=== PATIENT | female | born 1940 | race Hispanic/Latino ===

== ENCOUNTER 2017-12-17 07:17 | Outpatient (CLI) | payer MEDICARE, OTHER ==
[2017-12-17] MEDS ORDERED: Iopamidol 370 76% 100 ML VIAL ONE (11:08)
--- NOTE | 2017-12-17 12:21 | CT ---
CT ANGIOGRAM OF THE NECK: HISTORY: Evaluate for carotid stenosis. Right-sided neck mass. Restless leg syndrome. COMPARISON: None. TECHNIQUE: A CT angiogram of the neck is performed in the axial plane. Sagittal and coronal three-dimensional r eformatted images are submitted for interpretation. FINDINGS: Bilateral ocular lens implants are noted. Both globes are intact. Retrobulbar fat is preserved. Sy mmetric attenuation of the optic nerves and ocular rectus muscles. Visualized brain parenchyma is unremarkable. Adequate aeration of the sinuses and mastoid air cells. The aerodigestive tract is patent. No mucosal abnormality. Limited evaluation of the oral cavity du e to dental amalgam artifact. Midline fatty raphe of the tongue is preserved. The epiglottis has a normal caliber. Pre-epiglottic fat is preserved. Mass effect upon the posterior oropharynx and hypo pharynx due to medial deviation of both internal carotid and right common carotid arteries. Symmetric attenuation of the parotid and submandibular glands. Symmetric attenuation of the sternocleidomastoid muscles. No evidence of lymphadenopathy by size cri teria. Cervical spine vertebral body height is maintained. No fracture. Varying degrees of central canal s tenosis or foraminal narrowing. The upper mediastinum and lung apices are unremarkable. CT ANGIOGRAM: There is appropriate enhancement and luminal diameter of the aortic arch. RIGHT CAROTID: The origin of the right carotid artery is appropriate in enhancement and luminal diam eter. The right common carotid artery, carotid bifurcation, and internal carotid artery have overall appropriate enhancement and luminal diameter. There is tortuosity of the mid right internal carotid artery. LEFT CAROTID: The left common carotid artery has appropriate enhancement and luminal diameter. Ther e is short-segment mild stenosis involving the left carotid bifurcation, based upon NASCET criteria. The proximal, mid, and distal left internal carotid artery have overall appropriate enhancement and luminal diameter. There is tortuosity with medial deviation of the mid left internal carotid artery. The left and right vertebral body origins have appropriate enhancement and luminal diameter. There i s symmetric enhancement and luminal diameter of the vertebral arteries. IMPRESSION: 1. No evidence of significant stenosis based upon NASCET criteria. 2. Mild stenosis involving the left carotid bifurcation. 3. Medial deviation and tortuosity of both internal carotid arteries, as well as the right common ca rotid artery. POS: [facility]
== END 2017-12-17 07:18 | disposition home or self-care (01) ==
LOC: CT 07:17
PROVIDERS: ATTEND Internal Medicine
DX: R22.1 Localized swelling, mass and lump, neck (principal); I65.22 Occlusion and stenosis of left carotid artery; I77.89 Other specified disorders of arteries and arterioles
CPT/HCPCS: 70498

== ENCOUNTER 2019-01-09 15:38 | Outpatient (CLI) | payer MEDICARE, OTHER ==
--- NOTE | 2019-01-09 16:33 | RAD ---
TWO VIEWS RIGHT HIP 01/09/19 HISTORY: Right hip pain. AP and frogleg views right hip is obtained on 01/09/19. Two views right hip demonstrate no evidence of right hip fractures, subluxations, or bony lesions. IMPRESSION: Normal two views right hip. POS: [facility]
== END 2019-01-09 15:39 | disposition home or self-care (01) ==
LOC: BICRAD 15:38
PROVIDERS: ATTEND Internal Medicine
DX: M25.551 Pain in right hip (principal)
CPT/HCPCS: 36415; 80053; 80061; 84443; 85025

== ENCOUNTER 2019-01-20 13:23 | Outpatient (CLI) | payer MEDICARE, OTHER ==
--- NOTE | 2019-01-20 16:21 | BD ---
BONE DENSITOMETRY USING DEXA: Date: 01/20/19 HISTORY: Postmenopausal screening for osteoporosis. FINDINGS: Lumbar Spine: BMD (g/cm2) L1 1.057 T-Score: 0.6 Z-Score: 2.9 L2 1.009 T-Score: -0.2 Z-Score: 2.4 L3 1.106 T-Score: 0.2 Z-Score: 2.9 L4 1.133 T-Score: 0.7 Z-Score: 3.5 L1-L4 1.077 T-Score: 0.3 Z-Score: 2.9 Femoral Neck: 0.686 T-Score: -1.5 Z-Score: 0.7 Total Femur: 0.816 T-Score: -1.0 Z-Score: 0.9 The 10 year fracture risk for a major osteoporotic fracture is 22% and for a hip fracture is 12%. IMPRESSION: Osteopenia. POS: [facility]
--- NOTE | 2019-01-27 13:20 | MMO ---
Bilateral MAMMO Bilat Screen [facility]. CLINICAL HISTORY: Patient is 78 years old and is seen for screening. The patient has no family history of breast cancer. The patient has a history of uterine cancer at age 31 and melanoma. VIEWS: The views performed were: bilateral craniocaudal with tomosynthesis and bilateral mediolateral oblique with tomosynthesis. FILMS COMPARED: The present examination has been compared to prior imaging studies performed at [facility] on 01/12/2016, and at [facility] on 10/22/2007 and 03/07/2010. MAMMOGRAM FINDINGS: There are benign appearing calcifications. There are no suspicious masses, calcifications or areas of architectural distortion. IMPRESSION: THERE IS NO MAMMOGRAPHIC EVIDENCE OF MALIGNANCY. A ROUTINE FOLLOW-UP MAMMOGRAM IN 1 YEAR IS RECOMMENDED. THE RESULTS OF THIS EXAM WERE SENT TO THE PATIENT. ACR BI-RADS Category 2 - Benign finding MAMMOGRAPHY NOTE: 1. A negative mammogram report should not delay a biopsy if a dominant of clinically suspicious mass is present. 2. Approximately 10% to 15% of breast cancers are not detected by mammography. 3. Adenosis and dense breasts may obscure an underlying neoplasm.
== END 2019-01-20 13:24 | disposition home or self-care (01) ==
LOC: BICMAMMO 13:23
PROVIDERS: ATTEND Internal Medicine
DX: Z12.31 Encounter for screening mammogram for malignant neoplasm of breast (principal); Z78.0 Asymptomatic menopausal state; M85.859 Other specified disorders of bone density and structure, unspecified thigh; Z85.42 Personal history of malignant neoplasm of other parts of uterus; Z85.820 Personal history of malignant melanoma of skin
CPT/HCPCS: 77063; 77067; 77080

== ENCOUNTER 2019-11-14 13:48 | Emergency (ER) | payer MEDICARE, OTHER ==
[2019-11-14] MEDS ORDERED: Atropine Sulfate 1 mg/10 ml Syringe ONE (14:11)
[2019-11-14 14:23] LABS: Mean Corpuscular HGB CONC 33.7 g/dL (32.0-36.0); Mean Corpuscular Hemoglobin 30.7 pg (27.0-31.0); Mean Corpuscular Volume 91.2 fL (78.0-98.0); Mean Platelet Volume 7.4 fL (7.4-10.4); Platelet Count 151 thou/uL (130-400); RBC Distribution Width 11.9 % (11.5-14.5); Red Blood Cell (RBC) Count 4.23 mill/uL (4.20-5.40)
[2019-11-14 14:42] LABS: ALT (SGPT) 11 U/L (8-55); AST (SGOT) 19 U/L (5-34); Albumin 3.5 g/dL (3.4-4.8); Alkaline Phosphatase 68 U/L (40-110); Anion Gap 13 mmol/L (10-20); BUN (Urea Nitrogen) 11 mg/dL (9.8-20.1); Bilirubin, Total 0.4 mg/dL (0.2-1.2); CK (CPK) 138 U/L (29-168); Calc. Creatinine Clearance 0 mL/min (70-130); Calcium 7.9 mg/dL (7.8-10.44); Carbon Dioxide 21 mmol/L (23-31); Chloride 101 mmol/L (98-107); Estimated GFR-MDRD 73; Globulin 2.4 g/dL (2.4-3.5); Glucose 92 mg/dL (83-110); Potassium 3.7 mmol/L (3.5-5.1); Protein, Total 5.9 g/dL (6.0-8.3); Sodium 131 mmol/L (136-145)
--- NOTE | 2019-11-14 14:43 | CT ---
CT BRAIN WITHOUT CONTRAST: HISTORY: Syncope. COMPARISON: 06/02/2015 FINDINGS: Changes of chronic small vessel ischemic disease and mild cortical atrophy are again seen. The ventri cular size is stable and the basilar cisterns are patent. No evidence of acute infarct, hemorrhage, midline shift or abnormal extraaxial fluid collections is s een. The bony calvarium is intact. the visualized paranasal sinuses and mastoid air cells are well ae rated. IMPRESSION: No CT evidence of acute intracranial process. POS: [facility]
[2019-11-14 15:03] LABS: Band 1 % (5-11); Eosinophils 5 % (0-10); Lymphocytes 27 % (21-51); MDiff Complete? YES; Monocytes 18 % (0-10); Neutrophil 49 % (42-75); Platelet Morphology Comment Appears Adequate; RBC Morphology Normal
[2019-11-14 17:37] LABS: Bacteria/HPF None Seen HPF (None Seen); Bilirubin Negative (Negative); Blood, Urine Negative (Negative); Clarity Clear (Clear); Glucose, Urine (Dipstick) Normal (Negative); Leukocyte 75 Leu/uL (Negative); Nitrite Negative (Negative); Protein, Urine (Dipstick) Negative (Neg-Trace); RBC/HPF 0-3 HPF (0-3); Squamous Epithelial 0-3 HPF (0-3); Urobilinogen Normal mg/dL (Less than 2)
== END 2019-11-14 17:11 | disposition home or self-care (01) ==
LOC: ERS 13:48
DX: R55 Syncope and collapse (principal); I10 Essential (primary) hypertension; G25.81 Restless legs syndrome; Z85.79 Personal history of other malignant neoplasms of lymphoid, hematopoietic and related tissues; Z79.899 Other long term (current) drug therapy
CPT/HCPCS: 36415; 70450; 80053; 81003; 81015; 82550; 83880; 84484; 85025; 93005; 96361; 96374; J0461

== ENCOUNTER 2020-05-28 12:47 | Emergency (ER) | payer MEDICARE, OTHER ==
[2020-05-28 13:26] LABS: #Basophils 0.1 thou/uL (0.0-0.2); #Eosinphils 0.1 thou/uL (0.0-0.7); #Lymphocytes 1.4 thou/uL (1.20-3.40); #Monocytes 0.7 thou/uL (0.11-0.59); #Neutrophils 5.6 thou/uL (1.40-6.50); %Basophils 0.7 % (0.0-1.0); %Eosinophils 1.6 % (0.0-10.0); %Lymphocytes 17.5 % (21.0-51.0); %Monocytes 8.9 % (0.0-10.0); %Neutrophils 71.4 % (42.0-75.0); Hemoglobin 13.5 g/dL (12.0-16.0); Mean Corpuscular HGB CONC 32.8 g/dL (32.0-36.0); Mean Corpuscular Hemoglobin 30.2 pg (27.0-31.0); Mean Corpuscular Volume 91.9 fL (78.0-98.0); Mean Platelet Volume 7.6 fL (7.4-10.4); Platelet Count 184 thou/uL (130-400); RBC Distribution Width 12.3 % (11.5-14.5); Red Blood Cell (RBC) Count 4.47 mill/uL (4.20-5.40); White Blood Cell (WBC) Count 7.9 thou/uL (4.8-10.8)
[2020-05-28 13:51] LABS: ALT (SGPT) 13 U/L (8-55); AST (SGOT) 17 U/L (5-34); Alkaline Phosphatase 77 U/L (40-110); Anion Gap 11 mmol/L (10-20); BUN (Urea Nitrogen) 15 mg/dL (9.8-20.1); Bilirubin, Total 0.4 mg/dL (0.2-1.2); Calc. Creatinine Clearance 0 mL/min (70-130); Calcium 9.2 mg/dL (7.8-10.44); Carbon Dioxide 24 mmol/L (23-31); Chloride 98 mmol/L (98-107); Estimated GFR-MDRD 69; Globulin 3.2 g/dL (2.4-3.5); Glucose 89 mg/dL (83-110); Potassium 4.4 mmol/L (3.5-5.1); Protein, Total 7.2 g/dL (6.0-8.3); Sodium 129 mmol/L (136-145)
== END 2020-05-28 14:38 | disposition home or self-care (01) ==
LOC: ERS 12:47
DX: N39.0 Urinary tract infection, site not specified (principal); I10 Essential (primary) hypertension; Z79.899 Other long term (current) drug therapy; Z85.79 Personal history of other malignant neoplasms of lymphoid, hematopoietic and related tissues
CPT/HCPCS: 36415; 80053; 85025; 99283

== ENCOUNTER 2020-06-09 10:17 | Outpatient (CLI) | payer MEDICARE, OTHER ==
--- NOTE | 2020-06-09 10:43 | RAD ---
EXAM: 2 views of the lumbosacral spine HISTORY: Low back pain COMPARISON: 02/17/2008 FINDINGS: 2 views of the lumbosacral spine shows moderate to severe scoliotic curvature the spine wit h intervertebral disc space narrowing and osteophyte formation. The vertebral bodies demonstrate normal height without fracture. Posterior facet arthrosis is seen throughout the lumbar spine. Cholecystectomy clips are seen. The sacroiliac joints are unremarkable. IMPRESSION: Severe degenerative changes and scoliosis of the lumbar spine without acute osseous abnor mality.
== END 2020-06-09 10:18 | disposition home or self-care (01) ==
LOC: BICRAD 10:17
PROVIDERS: ATTEND Physician Assistant
DX: M54.31 Sciatica, right side (principal); M47.816 Spondylosis without myelopathy or radiculopathy, lumbar region; M41.9 Scoliosis, unspecified
CPT/HCPCS: 72100

== ENCOUNTER 2021-07-17 15:18 | Inpatient (IN) | payer MEDICARE, OTHER ==
[2021-07-17 15:55] LABS: #Basophils 0.1 thou/uL (0.0-0.2); #Eosinphils 0.2 thou/uL (0.0-0.7); #Lymphocytes 1.5 thou/uL (1.20-3.40); #Monocytes 0.8 thou/uL (0.11-0.59); #Neutrophils 4.5 thou/uL (1.40-6.50); %Basophils 0.8 % (0.0-1.0); %Lymphocytes 20.6 % (21.0-51.0); %Monocytes 11.2 % (0.0-10.0); %Neutrophils 64.4 % (42.0-75.0); Hemoglobin 13.4 g/dL (12.0-16.0); Mean Corpuscular HGB CONC 33.9 g/dL (32.0-36.0); Mean Corpuscular Hemoglobin 31.1 pg (27.0-31.0); Mean Corpuscular Volume 91.8 fL (78.0-98.0); Mean Platelet Volume 7.1 fL (7.4-10.4); Platelet Count 161 thou/uL (130-400); RBC Distribution Width 12.1 % (11.5-14.5); White Blood Cell (WBC) Count 7.1 thou/uL (4.8-10.8)
[2021-07-17 16:17] LABS: ALT (SGPT) 13 U/L (8-55); AST (SGOT) 21 U/L (5-34); Albumin 3.4 g/dL (3.4-4.8); Alkaline Phosphatase 97 U/L (40-110); Anion Gap 13 mmol/L (10-20); BUN (Urea Nitrogen) 10 mg/dL (9.8-20.1); Bilirubin, Total 0.3 mg/dL (0.2-1.2); Calc. Creatinine Clearance 0 mL/min (70-130); Calcium 8.7 mg/dL (7.8-10.44); Carbon Dioxide 23 mmol/L (23-31); Chloride 101 mmol/L (98-107); Globulin 2.7 g/dL (2.4-3.5); Glucose 105 mg/dL (83-110); Lipase 32 U/L (8-78); Potassium 3.7 mmol/L (3.5-5.1); Protein, Total 6.1 g/dL (5.8-8.1); Sodium 133 mmol/L (136-145)
[2021-07-17] MEDS ORDERED: Calcium Carbonate 500 MG ChewTAB PO PRN (18:02)
[2021-07-17 18:04] LABS: Magnesium 2.1 mg/dL (1.6-2.6)
[2021-07-17] MEDS ORDERED: rOPINIRole HCl 0.25 MG TAB PO PRN (18:08)
[2021-07-17 18:35] LABS: Troponin I Less than 0.010 ng/mL (< 0.028)
[2021-07-17 19:24] LABS: #Lymphocytes 0.7 thou/uL (1.20-3.40); #Monocytes 0.5 thou/uL (0.11-0.59); #Neutrophils 9.9 thou/uL (1.40-6.50); %Basophils 0.3 % (0.0-1.0); %Eosinophils 0.4 % (0.0-10.0); %Lymphocytes 6.2 % (21.0-51.0); %Monocytes 4.5 % (0.0-10.0); %Neutrophils 88.6 % (42.0-75.0); Hemoglobin 14.8 g/dL (12.0-16.0); Mean Corpuscular HGB CONC 34.8 g/dL (32.0-36.0); Mean Corpuscular Hemoglobin 32.6 pg (27.0-31.0); Mean Corpuscular Volume 93.6 fL (78.0-98.0); Mean Platelet Volume 7.5 fL (7.4-10.4); Platelet Count 156 thou/uL (130-400); RBC Distribution Width 12.2 % (11.5-14.5); Red Blood Cell (RBC) Count 4.54 mill/uL (4.20-5.40); White Blood Cell (WBC) Count 11.2 thou/uL (4.8-10.8)
[2021-07-17 20:05] VITALS: BMI 27.7
[2021-07-17] MEDS: Pantoprazole 40 MG VIAL IVP SCH (20:36)
[2021-07-17] MEDS: Saccharomyces boulardii 250 MG CAP PO SCH (20:36)
[2021-07-17] MEDS: NS 0.9% w/ 20 MEQ KCL 1,000 ML/1,000 ML BAG IV SCH (22:16)
[2021-07-17 23:37] LABS: Troponin I Less than 0.010 ng/mL (< 0.028)
[2021-07-18] MEDS: Lidocaine 2% Viscous Solution 20 ML, Aluminum & Magnesium Hydroxide 30 ML, Donnatal Eli... SSW SCH ×2 (00:13→00:59)
[2021-07-18] MEDS ORDERED: Lidocaine 2% Viscous Solution 10 ML, Aluminum & Magnesium Hydroxide 30 ML SSW SCH (01:00)
[2021-07-18 04:47] LABS: #Lymphocytes 0.7 thou/uL (1.20-3.40); #Monocytes 1.8 thou/uL (0.11-0.59); #Neutrophils 14.1 thou/uL (1.40-6.50); %Basophils 0.1 % (0.0-1.0); %Eosinophils 0.1 % (0.0-10.0); %Monocytes 10.6 % (0.0-10.0); %Neutrophils 85.3 % (42.0-75.0); Hemoglobin 14.2 g/dL (12.0-16.0); Mean Corpuscular HGB CONC 33.2 g/dL (32.0-36.0); Mean Corpuscular Hemoglobin 30.9 pg (27.0-31.0); Mean Corpuscular Volume 93.1 fL (78.0-98.0); Mean Platelet Volume 7.4 fL (7.4-10.4); Platelet Count 146 thou/uL (130-400); RBC Distribution Width 12.4 % (11.5-14.5); White Blood Cell (WBC) Count 16.5 thou/uL (4.8-10.8)
[2021-07-18] MEDS: Pantoprazole 40 MG VIAL IVP SCH (08:55)
[2021-07-18 10:41] LABS: Hemoglobin 14.2 g/dL (12.0-16.0)
[2021-07-18 11:07] LABS: ALT (SGPT) 12 U/L (8-55); AST (SGOT) 21 U/L (5-34); Albumin 3.3 g/dL (3.4-4.8); Alkaline Phosphatase 62 U/L (40-110); Anion Gap 13 mmol/L (10-20); BUN (Urea Nitrogen) 9 mg/dL (9.8-20.1); Calc. Creatinine Clearance 69 mL/min (70-130); Calcium 8.7 mg/dL (7.8-10.44); Carbon Dioxide 20 mmol/L (23-31); Chloride 105 mmol/L (98-107); Globulin 2.6 g/dL (2.4-3.5); Glucose 103 mg/dL (83-110); Potassium 4.4 mmol/L (3.5-5.1); Protein, Total 5.9 g/dL (5.8-8.1); Sodium 134 mmol/L (136-145)
[2021-07-18] MEDS: NS 0.9% w/ 20 MEQ KCL 1,000 ML/1,000 ML BAG IV SCH ×2 (11:49→20:48)
[2021-07-18] MEDS ORDERED: Iopamidol-370 76% 500 ML 1 ML ONE (12:22)
[2021-07-18 13:45] LABS: SARS-CoV-2 PCR by NAA Not Detected (NotDetected)
[2021-07-18] MEDS: Pramipexole Di-HCl 0.25 MG TAB PO SCH (14:37)
[2021-07-18] MEDS: metroNIDAZOLE 250 MG in Admixture Fee 2 EACH IVPB SCH (18:02)
[2021-07-18] MEDS: Saccharomyces boulardii 250 MG CAP PO SCH (20:48)
[2021-07-19] MEDS: metroNIDAZOLE 250 MG in Admixture Fee 2 EACH IVPB SCH ×4 (01:42→18:05)
[2021-07-19] MEDS: Acetaminophen 325 MG TAB PO PRN (01:56)
[2021-07-19 04:27] LABS: #Basophils 0.1 thou/uL (0.0-0.2); #Eosinphils 0.1 thou/uL (0.0-0.7); #Lymphocytes 1.8 thou/uL (1.20-3.40); #Monocytes 1.2 thou/uL (0.11-0.59); #Neutrophils 10.6 thou/uL (1.40-6.50); %Basophils 0.4 % (0.0-1.0); %Eosinophils 0.8 % (0.0-10.0); %Lymphocytes 13.3 % (21.0-51.0); %Monocytes 8.4 % (0.0-10.0); %Neutrophils 77.1 % (42.0-75.0); Hemoglobin 12.5 g/dL (12.0-16.0); Mean Corpuscular HGB CONC 33.3 g/dL (32.0-36.0); Mean Corpuscular Hemoglobin 30.9 pg (27.0-31.0); Platelet Count 132 thou/uL (130-400); RBC Distribution Width 12.4 % (11.5-14.5); Red Blood Cell (RBC) Count 4.03 mill/uL (4.20-5.40); White Blood Cell (WBC) Count 13.7 thou/uL (4.8-10.8)
[2021-07-19 05:03] LABS: Anion Gap 9 mmol/L (10-20); BUN (Urea Nitrogen) 7 mg/dL (9.8-20.1); Calc. Creatinine Clearance 66 mL/min (70-130); Carbon Dioxide 21 mmol/L (23-31); Chloride 107 mmol/L (98-107); Glucose 98 mg/dL (83-110); Magnesium 1.8 mg/dL (1.6-2.6); Potassium 4.1 mmol/L (3.5-5.1); Sodium 133 mmol/L (136-145)
[2021-07-19] MEDS ORDERED: Electrolyte Replacement Protocol 1 EACH FS SCH (08:00)
[2021-07-19] MEDS ORDERED: Magnesium 2 GM/50 ML 2 GM in Premix Bag 1 BAG IVPB SCH (09:00)
[2021-07-19] MEDS: Pramipexole Di-HCl 0.25 MG TAB PO SCH (14:11)
[2021-07-19] MEDS: NS 0.9% w/ 20 MEQ KCL 1,000 ML/1,000 ML BAG IV SCH (15:00)
[2021-07-19 16:21] LABS: Platelet Count 136 thou/uL (130-400)
[2021-07-19] MEDS: Saccharomyces boulardii 250 MG CAP PO SCH (21:18)
[2021-07-19] MEDS: hydrALAZINE 20 MG/ML VIAL SLOW IVP PRN (21:20)
[2021-07-20] MEDS: metroNIDAZOLE 250 MG in Admixture Fee 2 EACH IVPB SCH ×2 (03:42→18:51)
[2021-07-20] MEDS: NS 0.9% w/ 20 MEQ KCL 1,000 ML/1,000 ML BAG IV SCH ×2 (03:42→16:32)
[2021-07-20 04:35] LABS: #Basophils 0.1 thou/uL (0.0-0.2); #Eosinphils 0.4 thou/uL (0.0-0.7); #Monocytes 0.8 thou/uL (0.11-0.59); #Neutrophils 7.4 thou/uL (1.40-6.50); %Basophils 0.7 % (0.0-1.0); %Eosinophils 3.7 % (0.0-10.0); %Lymphocytes 18.8 % (21.0-51.0); %Monocytes 7.8 % (0.0-10.0); %Neutrophils 69.1 % (42.0-75.0); Hemoglobin 13.5 g/dL (12.0-16.0); Mean Corpuscular HGB CONC 33.4 g/dL (32.0-36.0); Mean Corpuscular Hemoglobin 30.7 pg (27.0-31.0); Mean Corpuscular Volume 91.8 fL (78.0-98.0); Mean Platelet Volume 7.4 fL (7.4-10.4); Platelet Count 159 thou/uL (130-400); RBC Distribution Width 12.2 % (11.5-14.5); Red Blood Cell (RBC) Count 4.41 mill/uL (4.20-5.40); White Blood Cell (WBC) Count 10.7 thou/uL (4.8-10.8)
[2021-07-20 05:01] LABS: Anion Gap 13 mmol/L (10-20); BUN (Urea Nitrogen) 5 mg/dL (9.8-20.1); Calc. Creatinine Clearance 74 mL/min (70-130); Calcium 8.4 mg/dL (7.8-10.44); Carbon Dioxide 20 mmol/L (23-31); Chloride 105 mmol/L (98-107); Glucose 90 mg/dL (83-110); Sodium 134 mmol/L (136-145)
[2021-07-20] MEDS ORDERED: Midazolam HCl 2 mg/2 ml Vial ONE (13:48)
[2021-07-20] MEDS ORDERED: Gentamicin 80 MG/2 ML VIAL ONE (13:49)
[2021-07-20] MEDS ORDERED: Fentanyl 100 MCG/2 ML VIAL ONE (13:49)
[2021-07-20] MEDS ORDERED: CEFAZOLIN 1 GM VIAL ONE (13:49)
[2021-07-20] MEDS ORDERED: Lidocaine 1% (PF) 30 ML VIAL ONE (13:49)
[2021-07-20] MEDS ORDERED: hydrALAZINE 20 MG/ML VIAL ONE (15:18)
[2021-07-20] MEDS: Pramipexole Di-HCl 0.25 MG TAB PO SCH (16:32)
[2021-07-20] MEDS: metroNIDAZOLE 250 MG TAB PO SCH ×2 (16:32→21:15)
[2021-07-20] MEDS ORDERED: Metoprolol Tartrate 50 MG TAB PO SCH (21:00)
[2021-07-20] MEDS: Saccharomyces boulardii 250 MG CAP PO SCH (21:14)
[2021-07-20] MEDS: Acetaminophen 325 MG TAB PO PRN (21:24)
[2021-07-21] MEDS: NS 0.9% w/ 20 MEQ KCL 1,000 ML/1,000 ML BAG IV SCH (01:38)
[2021-07-21] MEDS ORDERED: Metoprolol Tartrate 50 MG TAB PO SCH (09:00)
[2021-07-21] MEDS: metroNIDAZOLE 250 MG TAB PO SCH (09:35)
[2021-07-21] MEDS: hydrALAZINE 20 MG/ML VIAL SLOW IVP PRN (09:37)
[2021-07-21 09:42] VITALS: TEMP 97.9
[2021-07-21 11:35] VITALS: BP 140/67
== END 2021-07-21 14:15 | disposition home or self-care (01) | DRG 242 ==
LOC: ERS 15:18 → 2NO 17:42 → OBSVTOIN 07-18 07:40
PROVIDERS: ADMIT Internal Medicine; ATTEND Internal Medicine
PROC: 0JH606Z Insertion of Pacemaker, Dual Chamber into Chest Subcutaneous Tissue and Fascia, Open Approach (ICD-10-PCS; principal; 2021-07-20)
PROC: 02H60JZ Insertion of Pacemaker Lead into Right Atrium, Open Approach (ICD-10-PCS; 2021-07-20)
PROC: 02HK0JZ Insertion of Pacemaker Lead into Right Ventricle, Open Approach (ICD-10-PCS; 2021-07-20)
DX: I44.2 Atrioventricular block, complete (principal); K55.039 Acute (reversible) ischemia of large intestine, extent unspecified; I50.32 Chronic diastolic (congestive) heart failure; I13.0 Hypertensive heart and chronic kidney disease with heart failure and stage 1 through stage 4 chronic kidney disease, or unspecified chronic kidney disease; E87.1 Hypo-osmolality and hyponatremia; R00.1 Bradycardia, unspecified; Z66 Do not resuscitate; Z20.822 Contact with and (suspected) exposure to COVID-19; N18.2 Chronic kidney disease, stage 2 (mild); G25.81 Restless legs syndrome; Z96.642 Presence of left artificial hip joint; Z88.8 Allergy status to other drugs, medicaments and biological substances; Z79.899 Other long term (current) drug therapy; Z85.41 Personal history of malignant neoplasm of cervix uteri; Z87.440 Personal history of urinary (tract) infections; Z90.710 Acquired absence of both cervix and uterus; Z90.49 Acquired absence of other specified parts of digestive tract
CPT/HCPCS: 33208; 36415; 71045; 74174; 80048; 80053; 82274; 83630; 83690; 83735; 84484; 85025; 86850; 86900; 86901; 87045; 87046; 87186; 87324; 87328; 87329; 87427; 87449; 93005; 93010; 93798; 96374; C1785; C1898; C9113; G0378; J0360; J0690; J1580; J1956; J2001; J2250; J3010; J3475; J3480; Q9967; U0003; U0005

== ENCOUNTER 2023-09-29 04:39 | Emergency (ER) | payer MEDICARE, OTHER ==
[2023-09-29 05:39] LABS: Bacteria/HPF None Seen HPF (None Seen); Bilirubin Negative (Negative); Blood, Urine 3+ (Negative); CAUTI Indications for Culture Pelvic or flank pain; Clarity Extra Turbid (Clear); Glucose, Urine (Dipstick) Normal (Negative); Ketone, Urine Negative (Negative); Leukocyte 500 Leu/uL (Negative); Nitrite Negative (Negative); Protein, Urine (Dipstick) 100 mg/dL (Neg-Trace); RBC/HPF Greater than 50 HPF (0-3); Specific Gravity, Urine 1.012 (1.002-1.036); Squamous Epithelial None Seen HPF (0-3); Urobilinogen Normal mg/dL (Less than 2); WBC/HPF Greater than 50 HPF (0-3)
[2023-09-29 05:41] LABS: Urine Culture Reflex Yes Yes
== END 2023-09-29 06:07 | disposition home or self-care (01) ==
LOC: ERS 04:39
DX: N30.91 Cystitis, unspecified with hematuria (principal); I10 Essential (primary) hypertension
CPT/HCPCS: 81001; 87086; 99283

== ENCOUNTER 2024-03-09 08:13 | Inpatient (IN) | payer MEDICARE, OTHER ==
[2024-03-09 17:43] VITALS: BMI 27.1
[2024-03-10 14:19] VITALS: BMI 27.1
[2024-03-12 10:47] VITALS: TEMP 97.9
[2024-03-12 11:41] VITALS: BP 130/84
== END 2024-03-12 04:20 | disposition home health service (06) | DRG 871 ==
LOC: ERS 08:13 → ERHOLD 13:22 → 2SE 18:16 → 2NO 03-10 11:50
PROVIDERS: ADMIT Internal Medicine; ATTEND Internal Medicine
DX: A41.9 Sepsis, unspecified organism (principal); G93.41 Metabolic encephalopathy; N39.0 Urinary tract infection, site not specified; I24.89 Other forms of acute ischemic heart disease; E87.1 Hypo-osmolality and hyponatremia; Z88.8 Allergy status to other drugs, medicaments and biological substances; Z79.899 Other long term (current) drug therapy; Z79.01 Long term (current) use of anticoagulants; I10 Essential (primary) hypertension; Z90.49 Acquired absence of other specified parts of digestive tract; Z90.89 Acquired absence of other organs; Z98.890 Other specified postprocedural states; Z90.710 Acquired absence of both cervix and uterus; G25.81 Restless legs syndrome; Z79.82 Long term (current) use of aspirin; E87.6 Hypokalemia; Z66 Do not resuscitate; I48.0 Paroxysmal atrial fibrillation; I49.5 Sick sinus syndrome
CPT/HCPCS: 36415; 51701; 70450; 71045; 71275; 80048; 80053; 81001; 83605; 83690; 83735; 83880; 84443; 84484; 85025; 85610; 85730; 87040; 87086; 93005; 93306; 94760; 96361; 96365; 96372; 96375; J0696; J1200; J1630; J1650; J2060; J3490; Q9967

== ENCOUNTER 2024-06-27 03:09 | Observation (INO) | payer MEDICARE, OTHER ==
[2024-06-27] MEDS ORDERED: Meclizine HCl 25 MG TAB ONE (03:22)
[2024-06-27 03:59] LABS: #Basophils Less than 0.03 10x3/uL (0.0-0.2); %Basophils 0.3 % (0.0-1.0); %Eosinophils 4.7 % (0.0-10.0); %Lymphocytes 20.9 % (21.0-51.0); %Monocytes 11.4 % (0.0-10.0); %Neutrophils 62.4 % (42.0-75.0); Hematocrit 37.1 % (36.0-47.0); Hemoglobin 12.7 g/dL (12.0-16.0); Mean Corpuscular HGB CONC 34.2 g/dL (32.0-36.0); Mean Corpuscular Hemoglobin 28.7 pg (27.0-31.0); Mean Corpuscular Volume 83.7 fL (78.0-98.0); Mean Platelet Volume 9.7 fL (7.4-10.4); Platelet Count 136 10x3/uL (130-400); RBC Distribution Width 14.2 % (11.5-14.5); Red Blood Cell (RBC) Count 4.43 mill/uL (4.20-5.40)
[2024-06-27 04:08] LABS: INR-International Normal Ratio 1.1
[2024-06-27 04:09] LABS: PTT 31.8 sec (22.9-36.1)
[2024-06-27 04:11] LABS: Acetaminophen Less than 10 mcg/mL (Less than 10); Alcohol Less than 10.0 mg/dL (Less than 10); Salicylate Less than 8.0 mg/dL (Less than 8.0)
[2024-06-27 04:21] LABS: ALT (SGPT) 9 U/L (8-55); AST (SGOT) 20 U/L (5-34); Albumin 3.6 g/dL (3.4-4.8); Alkaline Phosphatase 82 U/L (40-110); Anion Gap 14 mmol/L (10-20); BUN (Urea Nitrogen) 13 mg/dL (9.8-20.1); Bilirubin, Total 0.4 mg/dL (0.2-1.2); Calc. Creatinine Clearance 0 mL/min (70-130); Calcium 9.1 mg/dL (7.8-10.44); Carbon Dioxide 22 mmol/L (23-31); Chloride 100 mmol/L (98-107); Estimated GFR 78; Globulin 3.8 g/dL (2.4-3.5); Glucose 100 mg/dL (83-110); Potassium 4.2 mmol/L (3.5-5.1); Protein, Total 7.4 g/dL (5.8-8.1); Sodium 132 mmol/L (136-145)
[2024-06-27 04:22] LABS: Troponin I 0.017 ng/mL (< 0.028)
[2024-06-27 07:29] VITALS: BMI 24.0
[2024-06-27] MEDS ORDERED: Acetaminophen 650 MG Suppository PR PRN (09:21)
[2024-06-27] MEDS ORDERED: Ondansetron PF 4 MG/2 ML Vial IVP PRN (09:21)
[2024-06-27] MEDS ORDERED: Acetaminophen 325 MG TAB PO PRN (09:21)
[2024-06-27] MEDS ORDERED: Ondansetron ODT 4 MG TAB PO PRN (09:21)
[2024-06-27] MEDS ORDERED: Iopamidol-370 76% 500 ML MDV (1 ML CHARGE) ONE (10:35)
[2024-06-27] MEDS ORDERED: Pramipexole Di-HCl 0.25 MG TAB PO SCH (15:00)
[2024-06-27 15:42] VITALS: BP 152/72; TEMP 97.8
[2024-06-27] MEDS ORDERED: Famotidine 20 MG TAB PO SCH (21:00)
[2024-06-27] MEDS ORDERED: Apixaban 5 MG TAB PO SCH (21:00)
[2024-06-27] MEDS ORDERED: Metoprolol Tartrate 50 MG TAB PO SCH (21:00)
[2024-06-27] MEDS ORDERED: Famotidine/PF 20 mg/2ml Vial SLOW IVP SCH (21:00)
[2024-06-28] MEDS ORDERED: Non-Formulary Item 1 EACH (Lisinopril [Lisinopril] 40 MG Tablet) PO SCH (09:00)
[2024-06-28] MEDS ORDERED: Lisinopril 20 MG TAB PO SCH (09:00)
== END 2024-06-27 14:20 | disposition home or self-care (01) ==
LOC: ERS 03:09 → ERHOLD 06:20
PROVIDERS: ADMIT Student in an Organized Health Care Education/Training Program; ATTEND Student in an Organized Health Care Education/Training Program
DX: R42 Dizziness and giddiness (principal); I48.91 Unspecified atrial fibrillation; G25.81 Restless legs syndrome; I11.0 Hypertensive heart disease with heart failure; I50.30 Unspecified diastolic (congestive) heart failure; Z90.49 Acquired absence of other specified parts of digestive tract; Z90.89 Acquired absence of other organs; Z90.722 Acquired absence of ovaries, bilateral; Z88.5 Allergy status to narcotic agent; Z88.8 Allergy status to other drugs, medicaments and biological substances; Z79.899 Other long term (current) drug therapy; Z79.01 Long term (current) use of anticoagulants; Z95.0 Presence of cardiac pacemaker; Z98.890 Other specified postprocedural states
CPT/HCPCS: 70496; 70498; 70551; 71045; 80307; 84484; 85610; 85730; 93005; 94760; 99285; Q9967; 80053; 84443; 85025; G0378

== ENCOUNTER 2024-12-17 14:00 | Outpatient (CLI) | payer MEDICARE, OTHER ==
[2024-12-17 14:50] LABS: #Basophils 0.05 10x3/uL (0.0-0.2); %Basophils 0.8 % (0.0-1.0); %Eosinophils 3.8 % (0.0-10.0); %Lymphocytes 25.7 % (21.0-51.0); %Monocytes 13.6 % (0.0-10.0); %Neutrophils 55.9 % (42.0-75.0); Hematocrit 39.2 % (36.0-47.0); Hemoglobin 12.9 g/dL (12.0-16.0); Mean Corpuscular HGB CONC 32.9 g/dL (32.0-36.0); Mean Corpuscular Hemoglobin 28.4 pg (27.0-31.0); Mean Corpuscular Volume 86.3 fL (78.0-98.0); Mean Platelet Volume 9.4 fL (7.4-10.4); Platelet Count 166 10x3/uL (130-400); RBC Distribution Width 13.6 % (11.5-14.5); Red Blood Cell (RBC) Count 4.54 mill/uL (4.20-5.40)
[2024-12-17 15:04] LABS: INR-International Normal Ratio 1.1; Prothrombin Time 14.2 sec (12.0-14.7)
[2024-12-17 15:05] LABS: PTT 30.7 sec (22.9-36.1)
[2024-12-17 15:11] LABS: ALT (SGPT) 8 U/L (Less than 34); AST (SGOT) 23 U/L (11-34); Albumin 3.6 g/dL (3.1-4.5); Alkaline Phosphatase 67 U/L (40-110); Anion Gap 12 mmol/L (10-20); BUN (Urea Nitrogen) 19 mg/dL (9.8-20.1); Bilirubin, Total 0.4 mg/dL (0.3-1.2); Calc. Creatinine Clearance 0 mL/min (70-130); Calcium 9.3 mg/dL (7.8-10.44); Carbon Dioxide 26 mmol/L (23-31); Chloride 101 mmol/L (98-107); Estimated GFR 68; Globulin 3.8 g/dL (2.4-3.5); Glucose 93 mg/dL (83-110); Potassium 4.6 mmol/L (3.5-5.1); Protein, Total 7.4 g/dL (5.8-8.1); Sodium 134 mmol/L (136-145)
== END 2024-12-17 14:01 | disposition home or self-care (01) ==
LOC: LABBT 14:00
PROVIDERS: ATTEND Internal Medicine Cardiovascular Disease
DX: Z01.818 Encounter for other preprocedural examination (principal); I48.0 Paroxysmal atrial fibrillation; Z91.81 History of falling
CPT/HCPCS: 80053; 85025; 85610; 85730; 86850; 86900; 86901; 93005; 93010

== ENCOUNTER 2025-09-01 05:45 | Day surgery (SDC) | payer MEDICARE, OTHER ==
[2025-08-31 14:25] VITALS: BMI 24.1
[2025-09-01] MEDS ORDERED: Lidocaine 2% PF 100 mg/5 ml Syringe ONE (10:00)
[2025-09-01] MEDS ORDERED: PROPOFOL 200 MG/20 ML VIAL ONE (10:05)
== END 2025-09-01 11:07 | disposition home or self-care (01) ==
LOC: SDC 05:45
PROVIDERS: ATTEND Internal Medicine Cardiovascular Disease
PROC: B245ZZ4 Ultrasonography of Left Heart, Transesophageal (ICD-10-PCS; principal; 2025-09-01)
DX: I48.0 Paroxysmal atrial fibrillation (principal); I10 Essential (primary) hypertension; J45.909 Unspecified asthma, uncomplicated; Z79.899 Other long term (current) drug therapy; Z88.5 Allergy status to narcotic agent
CPT/HCPCS: 93312; J2003; J2704